=== PATIENT | male | born 1950 | race Hispanic/Latino ===

== ENCOUNTER 2021-01-28 09:40 | Day surgery (SDC) | payer MEDICARE ==
[~2021-01-28 09:40] MED LIST: AMLODIPINE PO; LISI40TA9 PO; LOSA25TA41 PO; METOPROLOL PO
[2021-01-28 10:23] LABS: BASOPHILS % (AUTO) 0.5 % (0.0-5.0); EOSINOPHILS % (AUTO) 1.7 % (0.0-8.0); HEMATOCRIT 40.2 % (42-54); LYMPHOCYTES % (AUTO) 30.5 % (21.0-51.0); MEAN CORPUSCULAR HEMOGLOBIN 31.6 pg (27.0-33.0); MEAN CORPUSCULAR HGB CONC 36.3 g/dL (32.0-36.0); MONOCYTES % (AUTO) 11.8 % (3.0-13.0); NEUTROPHILS % (AUTO) 55.3 % (40.0-77.0); PLATELET COUNT (AUTO) 161 K/uL (130-400); RED BLOOD CELL COUNT(AUTO) 4.62 MIL/uL (4.50-6.20); WHITE BLOOD COUNT (AUTO) 6.4 K/uL (4.8-10.8)
[2021-01-28 10:36] LABS: INR 1.05 (0.85-1.15); PROTHROMBIN TIME 11.4 SEC (9.6-11.6)
[2021-01-28 10:37] LABS: PARTIAL THROMBOPLASTIN TIME 28.3 SEC (26.3-35.5)
== END 2021-01-28 11:45 | disposition home or self-care (01) ==
LOC: DAH 09:40
PROVIDERS: ATTEND Internal Medicine Gastroenterology
DX: R93.2 Abnormal findings on diagnostic imaging of liver and biliary tract (principal); R97.8 Other abnormal tumor markers; I10 Essential (primary) hypertension; E78.5 Hyperlipidemia, unspecified; Z86.010 Personal history of colon polyps; Z79.01 Long term (current) use of anticoagulants; Z98.890 Other specified postprocedural states; Z79.82 Long term (current) use of aspirin; Z79.899 Other long term (current) drug therapy
CPT/HCPCS: 36415; 76705; 85025; 85610; 85730; A4215; A4216; A4221; A4222; A4223 ×3; A4606; A4663

== ENCOUNTER 2021-03-28 08:15 | Day surgery (SDC) | payer MEDICARE ==
[2021-03-28 08:45] LABS: HEMATOCRIT 39.4 % (42-54); MEAN CORPUSCULAR HEMOGLOBIN 30.6 pg (27.0-33.0); MEAN CORPUSCULAR HGB CONC 34.5 g/dL (32.0-36.0); MEAN CORPUSCULAR VOLUME 88.7 fL (79-99); RED BLOOD CELL COUNT(AUTO) 4.44 MIL/uL (4.50-6.20); RED CELL DISTRIBUTION WIDTH 13.3 % (11.0-15.5)
[2021-03-28 08:55] LABS: INR 1.06 (0.85-1.15); PROTHROMBIN TIME 11.5 SEC (9.6-11.6)
[2021-03-28 08:57] LABS: ALBUMIN 3.6 g/dL (3.5-5.0); BILIRUBIN,TOTAL 0.6 mg/dL (0.2-1.0); CREATININE 1.3 mg/dL (0.5-1.5)
[2021-03-28 09:22] LABS: POTASSIUM 2.9 mmol/L (3.5-5.1)
[2021-03-28] MEDS ORDERED: FENTANYL CITRATE PF 50 MCG/1 ML 2ML VIAL ONE (09:32)
[2021-03-28] MEDS ORDERED: TRAMADOL HCL 50 MG TABLET ONE (11:49)
[2021-03-28] MEDS ORDERED: KCL 20 MEQ ERTAB PO SCH (12:37)
[2021-03-28] MEDS ORDERED: KCL 20 MEQ ERTAB PO ONE (12:47)
[2021-03-28] MEDS ORDERED: TRAMADOL HCL 50 MG TABLET PO ONE (15:00)
== END 2021-03-28 13:50 | disposition home or self-care (01) ==
LOC: RAH 08:15 → EDSTATUS 10:00 → RAH 13:50
PROVIDERS: ATTEND Internal Medicine Hematology & Oncology
DX: R16.0 Hepatomegaly, not elsewhere classified (principal); Z20.822 Contact with and (suspected) exposure to COVID-19; K74.69 Other cirrhosis of liver; R97.8 Other abnormal tumor markers; M17.0 Bilateral primary osteoarthritis of knee; E11.22 Type 2 diabetes mellitus with diabetic chronic kidney disease; I12.9 Hypertensive chronic kidney disease with stage 1 through stage 4 chronic kidney disease, or unspecified chronic kidney disease; N18.9 Chronic kidney disease, unspecified; E78.5 Hyperlipidemia, unspecified; E66.01 Morbid (severe) obesity due to excess calories; Z79.82 Long term (current) use of aspirin; Z79.01 Long term (current) use of anticoagulants; Z79.899 Other long term (current) drug therapy; Z98.890 Other specified postprocedural states; Z83.3 Family history of diabetes mellitus; Z82.49 Family history of ischemic heart disease and other diseases of the circulatory system; Z80.6 Family history of leukemia; Z87.891 Personal history of nicotine dependence
CPT/HCPCS: 36415; 47000; 76942; 80053; 85027; 85610; 85730; 88307; 88313; 88341; 88342; A4215 ×2; A4216; A4221; A4222; A4223 ×3; A4606; A4663; C2615; J3010; 99152